=== PATIENT | male | born 1950 | race Caucasian/White ===

== ENCOUNTER → 2016-07-06 | Outpatient (CLI) | payer MEDICARE, BC ==
[~2016-07-06] MED LIST: ACETAMINOPHEN325 MG PO; B-12500 MCG PO; BACITRAYCIN PLU28 GM TOP; BUSPAR15 M1 PO; CITALOPRAM HBR40 MG PO; COMBIVENT MININEB INH; ELIQUIS5 MG PO; FINASTERIDE5 MG PO; FLOMAX0.4 M1 PO; FLONASE ALLERG9.9 ML INH; LIPITOR80 MG PO; LO-DOSE ASPIRIN81 M1 PO; METFORMIN HCL500 M3 PO; MIRALAX17 G2 PO; NITROGLYCERIN0.4 MG SL; PROBIOTIC1 EAC5 PO; VITAMIN D35000 UNIT PO
--- NOTE | ~2016-07-06 | XA91 ---
[facility] A Service of [facility] & [facility] RADIOLOGY TEXT RESULTS PATIENT: CATHERINE TORRES LOCATION: CIVR : 51 UNIT #: [id number] AGE: [address]: Ki Yost MD SEX: M ORDER DR: [id number] [facility] [address] [place], [place] [address] [id number] O MR#: [id number] Acc #: [id number] NAME: CATHERINE TORRES : 1950 SEX: M STUDY DATE/TIME: 07/06/2016 8:32 UNIT: CIVR ROOM: STUDY DESCRIPTION: XA CVC Tunneled W Port Attending Physician: Ki Yost M.D., Ph.D. Ordering Physician: Ki Yost M.D., Ph.D. Primary Care Physician: Generic Doctor Not In System MEDICAL IMAGING REPORT This report is preliminary unless electronic signature is present EXAM Ultrasound fluoroscopically guided placement of a right internal jugular venous chest port INDICATIONS Access for immunotherapy. Not familial hypogammaglobulinemia. The fluoro time is 0.3 minutes. The reference air kerma is 6 mGy. IV Versed and Fentanyl were administered for conscious sedation. Approximately 35 minutes of sedation time was monitored by appropriately credentialed radiology nursing staff. 600 mg of IV Clindamycin was administered for antibiotic prophylaxis. PROCEDURE The risks, benefits and alternatives of the procedure were discussed with the patient and informed consent was obtained. In the procedure room a time-out was performed confirming correct patient and procedure. All elements of maximum sterile-barrier technique utilized according to guidelines appropriate for the procedure. TECHNIQUE/FINDINGS Ultrasound right internal jugular vein was performed. It is patent and compressible and images saved. Next, using full standard sterile barrier technique including sterile caps, gowns, gloves, masks, drapes, 2% Chlorhexidine for cutaneous antisepsis, and hand hygiene, real-time sterile ultrasound guidance was utilized with sterile gel and sterile probe covers and the right internal jugular vein was accessed using a 21-gauge micropuncture needle. Through this access and under fluoroscopic guidance a peel-away sheath was advanced into the SVC. Next, a small incision was made below the right clavicle. A subcutaneous pocket was created. The port was placed in the pocket and the catheter tubing was tunneled underneath the skin through the jugular dermatotomy site. The tubing was measured and cut to length and advanced to the sheath. The sheath was peeled away. Tip of the catheter is located in the lower SVC STS. [facility] A Service of [facility] RADIOLOGY TEXT RESULTS PATIENT: CATHERINE TORRES LOCATION: CIVR : 51 UNIT #: [id number] AGE: [address]: Ki Yost MD SEX: M ORDER DR: and a spot image was taken. The port was flushed with heparinized saline. The port pocket was closed using 3-0 Vicryl and Dermabond. The jugular dermatotomy site was closed using Dermabond. Patient tolerated procedure well without immediate complications. IMPRESSION Technically successful placement of a right IJ chest port as described Dictated by... Cliff Robb M.D. THIS IS AN ELECTRONICALLY VERIFIED REPORT Cliff Robb M.D. at 07/07/2016 2:34 PM MICHEAL/jj TD: 07/06/2016 19:04 JOB #: [id number] MEDICAL IMAGING REPORT Page 1 of 1 COPY
[2016-07-06 06:37] LABS: HEMATOCRIT 37.6 % (38.0-50.0); HEMOGLOBIN 12.2 gm/dL (13.0-16.0); MEAN CELL VOLUME 86.9 FL (83-96); MEAN CORPUSCULAR HEMOGLOBIN 28.1 PG (28-34); MEAN CORPUSCULAR HGB CONC 32.4 g/dL (30-36); MEAN PLATELET VOLUME 7.1 FL (6.5-11.5); RED BLOOD COUNT 4.32 X10e (3.90-5.60); RED CELL DISTRIBUTION WIDTH 16.6 % (11.0-15.5); WHITE BLOOD COUNT 7.8 X10e3 (4.0-10.5)
[2016-07-06 06:57] LABS: PARTIAL THROMBOPLASTIN TIME 25.4 SECONDS (23.5-31.3); PROTHROMBIN TIME (PATIENT) 10.9 SECONDS (9.6-11.5)
== END | disposition home or self-care (01) ==
LOC: CIVR 06:00
PROVIDERS: Internal Medicine Hematology & Oncology
PROC: 05HM33Z Insertion of Infusion Device into Right Internal Jugular Vein, Percutaneous Approach (ICD-10-PCS; principal; 2016-07-06)
DX: Z45.2 Encounter for adjustment and management of vascular access device (principal); D80.1 Nonfamilial hypogammaglobulinemia; L03.90 Cellulitis, unspecified
CPT/HCPCS: 36415; 76937; 77001; 85027; 85610; 85730; C1788; J1642; J2250; J3010